=== PATIENT | female | born 2005 ===

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

== ENCOUNTER 2025-09-02 12:10 | Emergency (ER) | payer OTHER ==
[~2025-09-02] VITALS: Ht 167.6 cm; Wt 70.8 kg
[2025-09-02 12:21] VITALS: BP 143/92
== END 2025-09-02 15:04 | disposition home or self-care (01) ==
LOC: ER 12:10
DX: O20.0 Threatened abortion (principal); Z3A.01 Less than 8 weeks gestation of pregnancy; Z79.899 Other long term (current) drug therapy
CPT/HCPCS: 76801; 76817; 84702; 86900; 86901; 99284-25